=== PATIENT | female | born 1945 | race Caucasian/White ===

== ENCOUNTER 2016-08-24 14:09 | Emergency (ER) | payer MEDICARE, OTHER ==
--- NOTE | ~2016-08-24 | ER ---
PATIENT'S NAME: CELINA PALACIOS [facility] AGE: 71 Y [address] ROOM: [place] [address] LOCATION: [facility] ADMIT DATE: 08/24/2016 ER/Outpatient Report DISCHARGE DATE: 08/24/2016 FAMILY PHYSICIAN: Norma Estrella MD ATTENDING PHYSICIAN: John Campoverde CHIEF COMPLAINT: Chest pain and shortness of breath. HISTORY OF PRESENT ILLNESS: The patient states that for about 15 minutes prior to arrival, she had a very unusual pressure-like sensation, centered in her left chest that went from the right side of the chest, all the way to the left shoulder, all the way down the left side. It was pressure-like in nature, not stabbing or tearing. It did not radiate to her back or her jaw. She was not flushed, but did feel short of breath at that time. During the episode, her friend noticed that her ankles turn unusual color and appeared swollen. The episode resolved spontaneously and she is currently asymptomatic. After the episode, she felt very tired and then did become flushed at that time. She has had no further symptoms at that time. She has a known history of kidney issues. PAST MEDICAL HISTORY: Documented on the record and reviewed by me. SOCIAL HISTORY: Documented on the record and reviewed by me. MEDICATIONS: Documented on the record and reviewed by me. ALLERGIES: DOCUMENTED ON THE RECORD AND REVIEWED BY ME. REVIEW OF SYSTEMS: All systems were reviewed and negative except as noted in the HPI. PHYSICAL EXAMINATION: VITAL SIGNS: Blood pressure 167/68, pulse 76, respiratory rate is 20, temperature 98.1, SpO2 is 99% on room air. Pain 0/10. GENERAL: An age appropriate female, appears actually younger than her stated age, in no obvious pain or distress, currently asymptomatic. NEUROLOGIC: The patient is awake and alert. GCS is 15. No focal deficits. No asymmetry on exam. PATIENT'S NAME: CELINA PALACIOS [facility] AGE: 71 Y [address] ROOM: [place] [address] LOCATION: [facility] ADMIT DATE: 08/24/2016 ER/Outpatient Report DISCHARGE DATE: 08/24/2016 FAMILY PHYSICIAN: Norma Estrella MD ATTENDING PHYSICIAN: John Campoverde HEENT: Normocephalic, atraumatic. Eyes are PERRL. Oropharynx is clear. NECK: Supple. Trachea is midline. CHEST: Heart regular rate and rhythm with no murmurs. LUNGS: Clear to auscultation bilateral. No rhonchi, wheezes, or rales. ABDOMEN: Soft, nontender, and nondistended. No rebound or guarding. BACK: Nontender to palpation throughout. No CVA tenderness. EXTREMITIES: Notable for some mild edema of the lower extremities. No appreciated erythema. No clear DVT. SKIN: Warm, dry, and intact. No obvious rashes. LABORATORY DATA AND X-RAYS: Chest x-ray unremarkable per my read. V/Q scan is unlikely to be pulmonary embolism. CBC is unremarkable. ProBNP is 63, D-dimer 0.72, INR is 1.0. CMS is notable for creatinine of 1.4. GFR 37, which is likely her baseline. Initial and repeat troponin are below threshold. EKG initially appeared to be sinus rhythm, rate of 75 with normal intervals and axis. No ischemia. Repeat EKG is grossly unchanged. IMPRESSION: Atypical chest pain, NOS, with shortness of breath, intermittent and resolved. EMERGENCY DEPARTMENT COURSE: The patient was seen and evaluated as above. With her leg swelling, shortness of breath, with unusual pain, I was concerned about PE. Thus a D-dimer was obtained as her age makes her not PERC negative. She underwent a V/Q scan, as she has baseline renal failure. They wanted to try to protect her kidneys. That was not consistent with pulmonary embolism. Multiple troponins and EKGs do not have any further evidence of cardiac damage. She does have some risk factors with hypertension and family history. I think she is overall relatively low risk chest pain. Currently, she has remained asymptomatic in the ER. She was given aspirin empirically just in case. I have recommended that she follow up with her primary care physician within the next 2 weeks to discuss further evaluation. I explained that she does have about a 5% chance of major adverse cardiac event in the next few weeks to months. For that reason, I do want close followup. She was much more comfortable discussing that with her primary care provider Dr. Estrella to decide further evaluation and treatment at that time. All questions were answered. The patient was ultimately discharged in good condition with no symptoms. Her presentation is not consistent with DVT, thus ultrasound was not obtained. JOHN CAMPOVERDE MD PATIENT'S NAME: CELINA PALACIOS [facility] AGE: 71 Y [address] ROOM: [place] [address] LOCATION: ED ADMIT DATE: 08/24/2016 ER/Outpatient Report DISCHARGE DATE: 08/24/2016 FAMILY PHYSICIAN: Norma Estrella MD ATTENDING PHYSICIAN: John Campoverde/mayelin /[id number] d: 08/25/16 1525 t: 09/05/16 0627, OUTPATIENT REPORT
[2016-08-24 14:39] LABS: BASOPHIL % 0.2 %; EOSINOPHIL # 0.2 K/uL (0.0-0.5); EOSINOPHIL % 4.1 %; HEMATOCRIT 37.8 % (33.0-46.0); HEMOGLOBIN 12.6 g/dL (10.0-15.0); LYMPHOCYTE # 1.4 K/uL (0.8-4.0); LYMPHOCYTE % 29.7 %; MCH 31.3 pg (27.0-34.0); MCHC 33.3 gm/dL (32.0-36.5); MONOCYTE # 0.3 K/uL (0.0-1.0); MONOCYTE % 5.6 %; NEUTROPHIL # (ANC) 2.8 K/uL (1.8-7.8); NEUTROPHIL % 60.4 %; NRBC % 0 /100WBC (0-0.00); PLATELET COUNT 222 K/uL (150-450); RBC 4.02 M/uL (3.50-5.50); WBC 4.6 K/uL (4.0-11.0)
[2016-08-24 14:47] LABS: PROTIME 10.3 SECONDS (9.6-11.1); PTT 22 SECONDS (25-32)
[2016-08-24 15:01] LABS: ALBUMIN 3.6 gm/dL (3.5-5.0); ALK PHOS 54 IU/L (33-138); ALT 28 IU/L (12-78); ANION GAP 12.8 (10.0-19.0); AST 25 IU/L (10-40); BLOOD UREA NITROGEN 21 mg/dL (6-24); CALCIUM 8.6 mg/dL (8.5-10.5); CHLORIDE 108 mMol/L (96-110); CO2 27 mMol/L (22-32); CPK 157 IU/L (21-215); CREATININE 1.4 mg/dL (0.5-1.1); ESTIMATED GFR (MDRD EQUATION) 37; POTASSIUM 3.8 mMol/L (3.7-5.1); SODIUM 144 mMol/L (135-145); TOTAL BILIRUBIN 0.4 mg/dL (0.0-1.5); TOTAL PROTEIN 7.1 g/dL (6.0-8.4)
[2016-08-24 17:48] LABS: CPK 145 IU/L (21-215)
== END 2016-08-24 18:11 | disposition disaster alternative care site (69) ==
LOC: GMED 14:09
PROVIDERS: Emergency Medicine
DX: R07.89 Other chest pain (principal)
CPT/HCPCS: A9539; A9540